=== PATIENT | male | born 1980 | race Caucasian/White ===

== ENCOUNTER 2021-05-16 13:00 | Emergency (ER) | payer SELFPAY ==
[~2021-05-16] VITALS: Ht 177.8 cm; Wt 101.0 kg
[2021-05-16] MEDS ORDERED: LIDOCAINE 1% INJ 20 ML 20 ML VIAL ONE (13:20)
[2021-05-16] MEDS ORDERED: LIDOCAINE/EPI 1%-1:100,000 (XYLOCAINE) 20ML ONE (13:29)
--- NOTE | 2021-05-16 14:09 | ED Integumentary General ---
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 LACERATION NOTED Source: patient Exam Limitations: no limitations History of Present Illness Date Seen by Provider: May 16, 2021 Time Seen by Provider: 13:15 Initial Comments Patient is a 40-year-old male who presents to the emergency department today with a chief complaint of a wound to the dorsum of his right hand. Patient was working on a car and was underneath it when something fell onto his right hand causing a laceration. Patient complained of an excessive amount of bleeding. He complains that his fingers are "numb". He states like his fingers feel asleep. He is right-hand dominant. He denies any other complaints of injury. Last tetanus shot was 3 years ago. All other review of systems reviewed and negative except as stated above. Timing/Duration: just prior to arrival Severity: mild Possible Cause: other (Direct blow) Associated Symptoms: denies symptoms Allergies and Home Medications Allergies Coded Allergies: ketorolac (Verified Allergy, Unknown, 05/16/21) tramadol (Verified Allergy, Unknown, 05/16/21) Patient Home Medication List Home Medication List Reviewed: Yes Review of Systems Review of Systems Constitutional: see HPI Respiratory: no symptoms reported Cardiovascular: no symptoms reported Gastrointestinal: no symptoms reported Genitourinary: no symptoms reported Musculoskeletal: joint pain (Right hand discomfort) Skin: see HPI, other (Laceration right hand) Psychiatric/Neurological: Numbness (To finger) All Other Systems Reviewed Negative Unless Noted: Yes Past Zdvqjmd-Qurjni-Ymnhht Hx Patient Social History Alcohol Use: Occasionally Uses Smoking Status: Never a Smoker Recent Infectious Disease Expo: No Physical Exam Vital Signs Vital Signs - First Documented 05/16/21 13:17 Pulse 76 Resp 18 B/P (MAP) 156/100 (118) Pulse Ox 98 O2 Delivery Room Air Capillary Refill : Less Than 3 Seconds General Appearance: WD/WN Neck: full range of motion Cardiovascular: regular rate, rhythm Respiratory: no respiratory distress, no accessory muscle use Extremities: non-tender, normal inspection, no pedal edema, no calf tenderness, other (No bony tenderness in the right hand) Neurologic/Psychiatric: alert, normal mood/affect, oriented x 3 Skin: normal color, warm/dry, other (1-1/2 cm laceration located on the dorsum of the right hand between the third and fourth fingers over the metacarpals. Brisk active bleeding is noted. Wound appears fairly superficial just through the subcutaneous tissues. Bleeding appears to be a venous bleed, is not pulsatile.) Procedures/Interventions Wound Location: Upper Extremities (Right hand) Other Wound Location Dorsum of right hand Wound Length (cm): 1.5 Wound's Depth, Shape: superficial Wound Explored: clean Irrigated w/ Saline (ccs): 250 Betadine Prep?: No Anesthesia: Lidocaine w/ Epi Volume Anesthetic (ccs): 3 Suture: Ethlion Suture Size: 4-0 Number of Sutures: 2 Layer Closure?: 1 Sterile Dressing Applied?: Yes Progress/Results/Core Measures Results/Orders Medications Given in ED Current Medications Medications Dose Ordered Sig/Bebeto Route Start Time Stop Time Status Last Admin Dose Admin Lidocaine/ Epinephrine 20 ml STK-MED ONCE .ROUTE 05/16/21 13:29 05/16/21 13:33 DC 05/16/21 13:35 20 ML Vital Signs/I&O 05/16/21 13:17 Pulse 76 Resp 18 B/P (MAP) 156/100 (118) Pulse Ox 98 O2 Delivery Room Air Blood Pressure Mean: 118 Progress Progress Note : Time: 14:07 Progress Note Direct pressure was held over the wound for at least 5 to 7 minutes. I could not get hemostasis achieved. 1% lidocaine with epinephrine was used to inject around the bleeding and then an electrocautery pen was used to gently cauterize the area of bleeding in the wound. One 4-0 Vicryl stitch was placed in the garcia bcutaneous tissues of the laceration. There was a little bit of decrease in bleeding. Then two 4-0 nylon sutures were placed in the laceration to finally achieve hemostasis. Patient was monitored for 20 minutes and no recurrence of bleeding happened. Patient will be sent home with antibiotics. Sutures to come out in 2 weeks. Patient tolerated the procedure well. Departure Impression Primary Impression: Hand laceration Qualified Codes: S61.411A - Laceration without foreign body of right hand, initial encounter Disposition: 01 HOME, SELF-CARE Condition: Stable Departure-Patient Inst. Decision time for Depature: 14:09 Referrals: [facility] [place] [facility],LOCAL PHYSICIAN (PCP) Primary Care Physician Patient Instructions: Laceration Repair With Stitches (DC) Add. Discharge Instructions: Keep the wound clean dry and covered while you are out and about. Wash gently daily with soap and water. Take the antibiotics as prescribed for the next 7 days. Return in 10 to 14 days for wound evaluation and suture removal. Come back to the emergency room for any increasing swelling, redness, streaking, drainage from the wound or any other emergent concerning symptoms. Scripts Cephalexin (Cephalexin) 500 Mg Tablet 500 MG PO TID, #15 TAB Prov: ASHELY SHERMAN MD 05/16/21 ASHELY SHERMAN MD May 16, 2021 14:09
[2021-05-16] MEDS ORDERED: CEPH500T PO (14:12)
[2021-05-16] MEDS ORDERED: CEFEPIME INJECTION 1,000 MG in WATER (STERILE) FOR INJECTION 10 ML IV ONE (14:15)
[2021-05-16 14:24] VITALS: BP 156/100
== END 2021-05-16 14:24 | disposition home or self-care (01) ==
LOC: EDUNIT# 13:00 → ER 13:02
DX: S61.411A Laceration without foreign body of right hand, initial encounter (principal); W20.8XXA Other cause of strike by thrown, projected or falling object, initial encounter
CPT/HCPCS: 12001

== ENCOUNTER 2021-05-29 15:13 | Emergency (ER) | payer SELFPAY ==
[~2021-05-29] VITALS: Ht 175.3 cm; Wt 101.4 kg
[~2021-05-29 15:13] MED LIST: CEPH500T PO
[2021-05-29 15:15] VITALS: BP 131/83
== END 2021-05-29 15:20 | disposition home or self-care (01) ==
LOC: EDUNIT# 15:13 → ER 15:15
DX: Z48.02 Encounter for removal of sutures (principal)

== ENCOUNTER 2021-10-03 23:40 | Emergency (ER) | payer SELFPAY ==
[2021-10-04] MEDS ORDERED: diphenhydrAMINE 50 MG/ML INJ (BENADRYL) ONE (00:01)
[2021-10-04] MEDS ORDERED: methylPREDNISolone 125 MG (Solu-MEDROL) VIAL ONE (00:02)
[2021-10-04] MEDS ORDERED: FAMOTIDINE 20MG/2ML IV (PEPCID) ONE (00:02)
[2021-10-04] MEDS ORDERED: FAMOTIDINE 20MG/2ML IV (PEPCID) IVP ONE (00:15)
[2021-10-04] MEDS ORDERED: methylPREDNISolone 125 MG (Solu-MEDROL) VIAL IVP ONE (00:15)
[2021-10-04] MEDS ORDERED: AZIT250T12 PO (02:00)
--- NOTE | 2021-10-04 02:00 | ED General ---
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 TOOK NEW MEDICINE ADVIL DUAL ACTION AT 2230. Source of Information: Patient Exam Limitations: No Limitations History of Present Illness Date Seen by Provider: Oct 03, 2021 Time Seen by Provider: 23:53 Initial Comments This 41-year-old gentleman presents to the emergency room with acute onset of hives shortly after taking a combined acetaminophen/ibuprofen product. He is also finishing an antibiotic prescription for strep throat. He has never had a reaction to amoxicillin in the past but states he is allergic to Toradol. He does not recall ever having taken ibuprofen in the past. He took diphenhydramine liquid 50 mg prior to arrival and states hives are improving. He has some feeling of tightness in the throat. He reports Covid and flu testing were negative when he was tested for strep throat. He felt like his heart was racing at onset of symptoms. Allergies and Home Medications Allergies Coded Allergies: tramadol (Verified Allergy, Severe, Anaphylaxis, 10/04/21) amoxicillin (Verified Allergy, Intermediate, Hives, 10/04/21) Hives, throat tightening, shortness of breath. Ibuprofen taken at the same time as amoxicillin. ibuprofen (Verified Allergy, Intermediate, Hives, 10/04/21) Hives, throat tightening, shortness of breath. Ibuprofen taken at the same time as amoxicillin. ketorolac (Verified Allergy, Unknown, 05/16/21) Patient Home Medication List Home Medication List Reviewed: Yes Azithromycin (Azithromycin) 250 Mg Tablet, 250 MG PO UD Prescribed by: ABRAHAM TOPETE on 10/04/21 0200 Cephalexin (Cephalexin) 500 Mg Tablet, 500 MG PO TID Prescribed by: ASHELY SHERMAN on 05/16/21 1412 Review of Systems Review of Systems Constitutional: no symptoms reported EENTM: see HPI Respiratory: no symptoms reported Cardiovascular: no symptoms reported Gastrointestinal: no symptoms reported Genitourinary: no symptoms reported Musculoskeletal: no symptoms reported Skin: see HPI Psychiatric/Neurological: No Symptoms Reported Hematologic/Lymphatic: No Symptoms Reported Immunological/Allergic: see HPI Past Mfxofxr-Vdwgkk-Hivyra Hx Patient Social History Tobacco Use?: Yes Tobacco type used: Cigarettes Smoking Status: Current Everyday Smoker Substance use?: No Alcohol Use?: Yes Alcohol Frequency: Couple times a week Pt feels they are or have been: No Past Medical History Surgeries: No Respiratory: No Cardiac: No Neurological: No Genitourinary: No Gastrointestinal: No Musculoskeletal: No Endocrine: No HEENT: No Cancer: No Psychosocial: No Integumentary: No Physical Exam Vital Signs Vital Signs - First Documented 10/03/21 23:50 Temp 36.8 Pulse 98 Resp 20 B/P (MAP) 166/114 (131) Pulse Ox 100 O2 Delivery Room Air Capillary Refill : Less Than 3 Seconds Height, Weight, BMI Height: '" Weight: lbs. oz. kg; 31.00 BMI Method:Actual General Appearance: No Apparent Distress, WD/WN HEENT: PERRL/EOMI, Normal ENT Inspection, Pharynx Normal Neck: Normal Inspection Respiratory: Lungs Clear, Normal Breath Sounds, No Accessory Muscle Use Cardiovascular: Regular Rate, Rhythm, No Edema, No Murmur Gastrointestinal: Normal Bowel Sounds, Non Tender, Soft Extremity: Normal Inspection, No Pedal Edema Neurologic/Psychiatric: Alert, Oriented x3, No Motor/Sensory Deficits, Normal Mood/Affect Skin: Normal Color, Warm/Dry, Rash (hives) Procedures/Interventions Suture Size: 4-0 Progress/Results/Core Measures Suspected Sepsis SIRS Temperature: Pulse: 98 Respiratory Rate: 20 Blood Pressure 166 /114 Mean: 131 Results/Orders My Orders Orders - ABRAHAM CURTIS MD Methylprednisolone Sod Succ (Solu-Medrol (10/04/21 00:15) Famotidine Injection (Pepcid Injection) (10/04/21 00:15) Diphenhydramine Injection (Benadryl Inje (10/04/21 00:01) Methylprednisolone Sod Succ (Solu-Medrol (10/04/21 00:02) Famotidine Injection (Pepcid Injection) (10/04/21 00:02) Medications Given in ED Vital Signs/I&O 10/03/21 10/04/21 23:50 02:15 Temp 36.8 36.8 Pulse 98 82 Resp 20 16 B/P (MAP) 166/114 (131) 126/85 Pulse Ox 100 99 O2 Delivery Room Air Room Air Capillary Refill : Less Than 3 Seconds Blood Pressure Mean: 131 Progress Note : Progress Note Emerson was treated with Pepcid and Solu-medrol with near resolution. He was monitored for more than 2 hours before dismissal. Reaction was likely due to ibuprofen given proximity of reaction to dosing of ibuprofen and his history of reaction to Toradol. See discharge instructions for further discussion. Both amoxicillin and ibuprofen were added to his allergy profile. Amoxicillin was replaced with a azithromycin for treatment of strep throat. Departure Impression Primary Impression: Allergic drug reaction Qualified Codes: T78.40XA - Allergy, unspecified, initial encounter Additional Impression: Strep throat Disposition: HOME, SELF-CARE Condition: Improved Departure-Patient Inst. Decision time for Depature: 01:57 Referrals: [facility] (PCP/Family) Primary Care Physician Patient Instructions: Drug Allergy Add. Discharge Instructions: Due to your prior reaction to Toradol (ketorolac) it is likely that your allergy today is from ibuprofen. However, it is also possible the allergy is to amoxicillin. Please list both ibuprofen and amoxicillin as allergies in the future and avoided both of these medications. Avoid any NSAID medication including naproxen, ibuprofen, diclofenac, aspirin, etc. Keep Benadryl (diphenhydramine) on hand at all times for at least the next 24 hours. Take 50 mg every 4 hours as needed for rebounding allergy symptoms. You should also take Pepcid (famotidine) 20 mg twice daily for the next couple of days. Return to the ER if you have worsening symptoms not responsive to Benadryl, especially if you develop swelling of the throat, tongue, or lips, or if you have difficulty breathing. Call with questions or concerns. Return to the ER if you have any other worsening symptoms or new concerns. All discharge instructions reviewed with patient and/or family. Voiced understanding. Scripts Azithromycin (Azithromycin) 250 Mg Tablet 250 MG PO UD, #6 TAB TAKE 2 TABLETS ON DAY ONE THEN TAKE 1 TABLET DAILY FOR FOUR MORE DAYS Prov: ABRAHAM CURTIS MD 10/04/21 ABRAHAM CURTIS MD Oct 04, 2021 01:59
[2021-10-04 02:15] VITALS: BP 126/85
== END 2021-10-04 02:15 | disposition home or self-care (01) ==
LOC: EDUNIT# 23:40 → ER 23:44
DX: J02.9 Acute pharyngitis, unspecified (principal); T39.1X5A Adverse effect of 4-Aminophenol derivatives, initial encounter; F17.210 Nicotine dependence, cigarettes, uncomplicated
CPT/HCPCS: 96374; 96375